=== PATIENT | male | born 1970 | race Caucasian/White ===

== ENCOUNTER 2023-07-12 09:48 | Outpatient (CLI) | payer OTHER ==
[2023-07-12 10:51] LABS: Hematocrit 45.2 % (38.8-50.0); Hemoglobin 15.8 g/dL (13.5-17.5); Mean Corpuscular Hemoglobin 29.7 pg (27.0-33.0); Mean Platelet Volume 10.3 fL (7.4-10.4); Platelet Count 143 10x3/uL (150-450); RBC Distribution Width 13.1 % (11.5-14.5); Red Blood Cell (RBC) Count 5.32 10x6/uL (4.32-5.72); White Blood Cell (WBC) Count 5.4 10x3/uL (3.5-10.5)
[2023-07-12 11:32] LABS: ALT (SGPT) 15 U/L (8-55); AST (SGOT) 17 U/L (5-34); Alkaline Phosphatase 91 U/L (40-110); Anion Gap 14 mmol/L (10-20); BUN (Urea Nitrogen) 10 mg/dL (8.4-25.7); Bilirubin, Total 1.1 mg/dL (0.2-1.2); Calc. Creatinine Clearance 0 mL/min (70-130); Calcium 9.6 mg/dL (7.8-10.44); Carbon Dioxide 27 mmol/L (22-29); Chloride 101 mmol/L (98-107); Estimated GFR 107; Globulin 2.6 g/dL (2.4-3.5); Glucose 100 mg/dL (70-105); Potassium 3.6 mmol/L (3.5-5.1); Protein, Total 6.6 g/dL (6.0-8.3); Sodium 138 mmol/L (136-145)
== END 2023-07-12 09:49 | disposition home or self-care (01) ==
LOC: CSHLAB 09:48
PROVIDERS: ATTEND Surgery
DX: Z01.818 Encounter for other preprocedural examination (principal); R59.0 Localized enlarged lymph nodes
CPT/HCPCS: 80053; 85027; 93005; 93010

== ENCOUNTER 2023-07-27 11:47 | Outpatient (CLI) | payer OTHER ==
[2023-07-27 13:30] LABS: Anion Gap 13 mmol/L (10-20); BUN (Urea Nitrogen) 12 mg/dL (8.4-25.7); Calc. Creatinine Clearance 0 mL/min (70-130); Calcium 9.3 mg/dL (7.8-10.44); Carbon Dioxide 26 mmol/L (22-29); Chloride 102 mmol/L (98-107); Estimated GFR 109; Glucose 127 mg/dL (70-105); Potassium 3.4 mmol/L (3.5-5.1); Sodium 138 mmol/L (136-145)
== END 2023-07-27 11:48 | disposition home or self-care (01) ==
LOC: CSHLAB 11:47
PROVIDERS: ATTEND Surgery
DX: Z01.812 Encounter for preprocedural laboratory examination (principal); C82.90 Follicular lymphoma, unspecified, unspecified site
CPT/HCPCS: 80048

== ENCOUNTER 2023-07-28 05:22 | Day surgery (SDC) | payer OTHER ==
[2023-07-27 12:11] VITALS: BMI 35.6
[2023-07-28] MEDS ORDERED: Bupivacaine PF 0.5% 30 ML VIAL ONE (06:27)
[2023-07-28] MEDS ORDERED: CEFAZOLIN 2 GM VIAL ONE (06:27)
[2023-07-28] MEDS ORDERED: EPINEPHrine 1 MG/ML VIAL ONE (06:27)
[2023-07-28] MEDS ORDERED: Dexamethasone 20 MG/5 ML VIAL ONE (06:30)
[2023-07-28] MEDS ORDERED: Ondansetron PF 4 MG/2 ML Vial ONE (06:30)
[2023-07-28] MEDS ORDERED: Lidocaine 1% PF 5 ML VIAL ONE (06:30)
[2023-07-28] MEDS ORDERED: PROPOFOL 20 ML ONE ×2 (06:31→07:04)
[2023-07-28] MEDS ORDERED: Midazolam HCl 2 mg/2 ml Vial ONE (06:31)
[2023-07-28] MEDS ORDERED: fentaNYL 50 mcg/mL 1 mL Vial ONE (06:31)
== END 2023-07-28 08:55 | disposition home or self-care (01) ==
LOC: CSHSDC 05:22
PROVIDERS: ATTEND Surgery
PROC: 0H9AX0Z Drainage of Inguinal Skin with Drainage Device, External Approach (ICD-10-PCS; principal; 2023-07-28)
PROC: 0JH60WZ Insertion of Totally Implantable Vascular Access Device into Chest Subcutaneous Tissue and Fascia, Open Approach (ICD-10-PCS; principal; 2023-07-28)
DX: C85.90 Non-Hodgkin lymphoma, unspecified, unspecified site (principal); L76.34 Postprocedural seroma of skin and subcutaneous tissue following other procedure; I10 Essential (primary) hypertension; E78.00 Pure hypercholesterolemia, unspecified; M62.08 Separation of muscle (nontraumatic), other site; K42.9 Umbilical hernia without obstruction or gangrene; F17.210 Nicotine dependence, cigarettes, uncomplicated; Z79.899 Other long term (current) drug therapy
CPT/HCPCS: 71045; A6258; C1788; J0171; J0665; J1100; J1642; J2250; J2405; J2704; J3010